=== PATIENT | male | born 1985 | race Caucasian/White ===

== ENCOUNTER 2022-08-18 15:33 | Outpatient (CLI) | payer BC, SELFPAY ==
--- NOTE | ~2022-08-18 | XR_ITS ---
EXAM: XR_CERV2-3V_CR DATE: 08/18/2022 15:51 HISTORY: Left arm numbness . COMPARISON: None available. FINDINGS: Craniocervical association and atlantoaxial joint are aligned. No prevertebral soft tissue swelling. Reversal of the cervical lordosis centered at C5, which can occur with positioning or musc le spasm. Vertebral bodies are aligned. Vertebral body heights are maintained. Mild disc space narrow ing at C4-5. Normal facets and posterior elements. IMPRESSION: No acute fracture or traumatic malalignment in the cervical spine. Mild degenerative disc disease. Reviewed, dictated and finalized at location K. EOPATH
== END 2022-08-18 15:34 ==
PROVIDERS: PCP Family Medicine; Visit Provider Physician Assistant
DX: R20.0 Anesthesia of skin (principal)
CPT/HCPCS: 72040

== ENCOUNTER 2024-11-17 15:53 | Outpatient (CLI) | payer SELFPAY ==
--- NOTE | ~2024-11-17 | XR_ITS ---
EXAM: XR thoracic spine 3V DATE: 11/17/2024 16:20 HISTORY: Upper back pain . COMPARISON: None available. FINDINGS: Vertebral body alignment intact. Vertebral body heights preserved. No disc space narrowing . No traumatic malalignment or fracture. Visualized lung parenchyma is clear. IMPRESSION: Normal thoracic spine radiograph findings. Reviewed, dictated and finalized at location K.
--- NOTE | ~2024-11-17 | XR_ITS ---
EXAM: XR_CERV2-3V_CR DATE: 11/17/2024 16:20 HISTORY: Cervical radiculopathy . COMPARISON: 08/18/2022. FINDINGS: Craniocervical association and atlantoaxial joint are aligned. No prevertebral soft tissue swelling. Reversed lordosis centered at C4-5. Trace, 1 mm anterolisthesis at C4-5. Vertebral body he ights are maintained. Mild disc space narrowing at C4-5. Normal facets and posterior elements. IMPRESSION: Trace grade 1 anterolisthesis at C4-5, with mild degenerative disc disease. Reviewed, dictated and finalized at location K.
== END 2024-11-17 15:54 | disposition home or self-care (01) ==
PROVIDERS: PCP Family Medicine; Visit Provider Family Medicine
DX: M54.12 Radiculopathy, cervical region (principal); M50.30 Other cervical disc degeneration, unspecified cervical region
CPT/HCPCS: 72040; 72072

== ENCOUNTER 2024-11-18 11:48 | Emergency (ER) | payer OTHER, SELFPAY ==
--- NOTE | 2024-11-18 11:50 | ED.GENADULT ---
HPI - General Adult General Chief complaint: Back Pain/Injury Stated complaint: left upper body pain Time Seen by Provider: 11/18/24 11:50 Source: patient Mode of arrival: ambulatory Limitations: no limitations History of Present Illness HPI narrative: 39-year-old male patient presents to the [facility] with complaints left upper neck /back pain. Patient states couple weeks ago he woke up 1 morning and feels like he slept on his back wrong. Patient states he was taking NSAIDs for about a week and states then that the back pain started getting worse. Was seen at an urgent care in [place] was prescribed steroids and muscle relaxers for 10 days. Patient followed up with his primary doctor yesterday had x-rays done which just showed degenerative disc disease and his muscle relaxants read refilled by his doctor. Patient coming in today states still having pain and not getting any relief. Patient states he continues to take NSAIDs with the muscle relaxers but does not feel like the muscle relaxers are helping. Denies numbness and tingling down the lower extremities but states at times he does get some nerve pain to the left arm. Related Data Home Medications ?Medication ?Instructions ?Recorded ?Confirmed ?Last Taken ?Type albuterol sulfate 90 mcg/actuation inhalation 11/18/24 Unknown History aerosol inhaler amoxicillin 875 mg-potassium tablet 11/18/24 Unknown History clavulanate 125 mg tablet budesonide-formoterol HFA 80 inhalation 11/18/24 Unknown History mcg-4.5 mcg/actuation aerosol inhaler (Symbicort) doxycycline hyclate 20 mg tablet mg 11/18/24 Unknown History lisinopril 20 mg tablet mg 11/18/24 Unknown History methocarbamol 500 mg tablet mg 11/18/24 Unknown History montelukast 10 mg tablet mg 11/18/24 Unknown History omeprazole 40 mg capsule,delayed mg 11/18/24 Unknown History release pimecrolimus 1 % topical cream applic topical 11/18/24 Unknown History prednisone 20 mg tablet mg 11/18/24 Unknown History Allergies Allergy/AdvReac Type Severity Reaction Status Date / Time No Known Allergies Allergy Verified 11/18/24 11:59 Review of Systems Review of Systems: CONSTITUTIONAL: Denies fever, chills, or sweats. EYES: Denies visual changes, redness, or discharge. ENT: Denies rhinorrhea, congestion, sore throat, or otalgia. CARDIOVASCULAR: Denies chest pain, palpitations, or edema. RESPIRATORY: Denies cough or dyspnea. GASTROINTESTINAL: Denies abdominal pain, nausea, vomiting, or diarrhea. GENITOURINARY: Denies dysuria or hematuria. SKIN: Denies rash or itching. MUSCULOSKELETAL: Positive left upper back pain, denies joint pain, or myalgia. NEUROLOGIC: Denies headache, numbness, or weakness. PSYCHIATRIC: Denies anxiety or depression. [facility] Past Medical History Medical History (Updated 11/18/24 @ 12:20 by GOYO Esposito) Fracture left and right wrist Asthma Hypothyroidism Comments At the time of my signature I agree with nursing past medical history, surgical, social, and family history. There is no relevant family history pertinent to the presenting complaint. Exam Narrative: GENERAL: Well-appearing, well-nourished, and in no acute distress. HEAD: Normocephalic, atraumatic. EYES: PERRLA and EOMI. ENT: Nares clear, no rhinorrhea or epistaxis. Mucous membranes moist. NECK: Supple. No lymphadenopathy CHEST: Clear to auscultation. No respiratory distress. HEART: Regular rate and rhythm. No murmur heard. Normal peripheral pulses. ABDOMEN: Soft, nontender, nondistended, normal active bowel sounds. EXTREMITIES: Normal range of motion. No edema. BACK: Patient is able to ambulated without assistance. Pt is seated on the stretcher in no obvious distress. No surface trauma noted. muscle tenderness to Palpation at the left side of the T3 area. there is an obvious spasm or mass noted on palpation. No step-offs or deformity noted to the cervical, thoracic or lumbar spine to firm Palpation at the midline. No CVA tenderness to percussion. No saddle anesthesia. ROM: able to stand erect. Normal flexion, extension, Lateral bending and rotation without limitation or complaint of pain. SKIN: Warm, dry, no rash. NEURO: No focal deficits. Alert and oriented x3. Course Course Level of Care: Express Care Visit Vital Signs Vital signs: vital signs reviewed. Medical Decision Making MDM Narrative Medical decision making narrative: discussed with patient that it is highly recommend that he continue to follow-up with his primary doctor and obtain PT. We will go ahead and change of his muscle relaxants to cyclobenzaprine to see if this helps a little bit more encouraged him to continue taking NSAIDs. Discussed with patient that he could also do gentle stretching exercises possibly get a massage to see if they can get the muscle spasm to relax also may want a look in to aged or disabled care worker possibly acupuncture to see if this might help with the muscle spasm. Patient verbalized understanding denies any other questions or concerns at this time. Differential Diagnosis Differential Diagnosis: Differential diagnosis: Acute musculoskeletal injury or exacerbation, neurological emergency, acute coronary syndrome, kidney stones, epidural abscess or hematoma,Cauda Equina Syndrome, herniation. Critical Care Time Critical Care Time Critical Care Time: No Discharge Plan Discharge Clinical Impression: Muscle spasm of back Patient Disposition: Home, Self-Care Condition: Stable Instructions: Antibiotic Form, Muscle Spasm (ED) Additional Instructions: Ice and heat to the area for 20-30 minutes Gentle stretching exercises Gentle massage Caution with lifting, bending, stooping, twisting Avoid pushing, pulling take muscle relaxants as directed--caution drowsiness and no driving or alcohol Anti-inflammatory medicine as directed--take with food He may take the muscle relaxant and anti-inflammatory at the same time Follow-up with your PCP if not improving in 5-7 days Patient Language: Korean Prescriptions: New cyclobenzaprine 10 mg tablet 10 mg PO TID PRN (Reason: muscle spasm) 10 Days Qty: 30 0RF lidocaine [Lidocaine Pain Relief] 4 % adhesive patch,medicated 1 patch topical DAILY PRN (Reason: pain) Qty: 5 0RF No Action methocarbamol 500 mg tablet lisinopril 20 mg tablet prednisone 20 mg tablet pimecrolimus 1 % cream TOPICAL omeprazole 40 mg capsule,delayed release(DR/EC) montelukast 10 mg tablet albuterol sulfate 90 mcg/actuation HFA aerosol inhaler INHALATION doxycycline hyclate 20 mg tablet amoxicillin-pot clavulanate 875-125 mg tablet budesonide-formoterol [Symbicort] 80-4.5 mcg/actuation HFA aerosol inhaler INHALATION Follow-up/Referrals: Adolfo,MD Germaine [Primary Care Provider] - Time of Disposition: 12:22
--- OUTSIDE RECORDS SUMMARY | 2024-11-18 11:51 | XMS_ITS | Encounter Summary ---
Author Organization [facility] Address [address] [place] [address] Care Team Providers Care Layout Artist Name Role Phone Germaine Peña MD Primary Care Provider Reason for Visit * Reason Onset Date Comments Medication 11/17/2024 Encounter Details Date Type Department Care Team (Late st Contact Info) Description 11/17/2024 Telephone [facility] Family & Internal Medicine [facility] [address] [place] [address] [place] [address] [facility]. [address] [place] [address] Medication Social History Tobacco Use Types Packs/Day Years Used Date Smoking Tobacco: Never Passive Smoke Exposure: Never Smokeless Tobacco: Never Alcohol Use Standard Drinks/Week Comments Yes 0 (1 standard drink = 0.6 oz pur e alcohol) Rare, family gatherings PHQ-2 Answer Date Recorded Patient Health Questionnaire-2 Score 0 11/17/2024 Sex and Gender Information Value Date Recorded Sex Assigned at Male 11/17/2024 1:23 PM CDT Legal Sex Male 8:04 PM CDT Gender Identity Not on file Sexual Orientation Not on file documented as of this encounter Progress Notes * Mirna Machado - 11/17/2024 4:28 PM CDT Samantha calling asking if there is anything he can do for his neck pain. States he just got xrays completed. states this is not like him to call off work and complain. Informed her I would send a message to provider, if pain continues to worsen to go to ER. Pharmacy: [facility] # [phone] Samantha documented in this encounter Plan of Treatment Upcoming Encounters Date Type Department Care Team (Late st Contact Info) Description 11/20/2024 7:40 AM CDT Office Visit [facility] Family & Internal Medicine [facility] [address] [place] [phone] [place] [address] [place] [address] 05/25/2025 9:00 AM CDT Office Visit [facility] Family & Internal [facility] [address] [place] [phone] [place] Peña [place] [address] [employer] [place] [address] documented as of this encounter Visit Diagnoses Not on filedocumented in this encounter Additional Health Concerns Assessment Noted Time PHQ-9 Depression Total Score: 0 04/04/20 21 10:06 AM CDT documented as of this encounter Care Teams Layout Artist Relationship Specialty Start Date [place]ña [place] [address] [employer]. [address] [place] [address] PCP - General FAMILY PRACTICE 04/04/21 documented as of this encounter
--- OUTSIDE RECORDS SUMMARY | 2024-11-18 11:51 | XMS_ITS | Encounter Summary ---
Author Organization [facility] Address [address] [place] [address] Care Team Providers Care Horse Rancher Name Role Phone Germaine Peña MD Primary Care Provider [phone] Encounter Details Date Type Department Care Team (Late Contact Info) Description 02/17/2023 MyChart Message Enc [facility] [address] [place], [place] [phone] [place], [facility] Provider Air Quality Message Social History Tobacco Use Types Packs/Day Years Used Date Smoking Tobacco: Never Smokeless Tobacco: Never Alcohol Use Standard Drinks/Week Comments Yes 0 (1 standard drink = 0.6 oz pur e alcohol) Rare, family gatherings PHQ-2 Answer Date Recorded PHQ-2 Score - If the patient scores above 3, please move on to questions 3-9 0 04/04/2021 Sex and Gender Information Value Date Recorded Sex Assigned at Male 11/17/2024 1:23 PM CDT Legal Sex Male 8:04 PM CDT Gender Identity Not on file Sexual Orientation Not on file documented as of this encounter Plan of Treatment Upcoming Encounters Date Type Department Care Team (Late st Contact Info) Description 11/20/2024 7:40 AM CDT Office Visit [facility] Family & Internal Medicine [facility] [address] [place] [address] [place] [address] [place] [address] 05/25/2025 9:00 AM CDT Office Visit [facility] & Internal [facility] [place] [address] [place] [phone] [place]ña [place] [address] [facility] [address] [place] [address] documented as of this encounter Visit Diagnoses Not on filedocumented in this encounter Additional Health Concerns Assessment Noted Time PHQ-9 Depression Total Score: 0 04/04/20 10:06 AM CDT documented as of this encounter Care Teams Horse Rancher Relationship Specialty Start Date [place] Date Germaine Peña [place] [address] [facility] [address]. [address] [place] [address] PCP - General FAMILY PRACTICE 04/04/21 documented as of this encounter
--- OUTSIDE RECORDS SUMMARY | 2024-11-18 11:51 | XMS_ITS | Encounter Summary ---
Author Organization [facility] Address [address] [place] [address] Care Team Providers Care Supervisor Ornamental Ironworking Name Role Phone Germaine Peña MD Primary Care Provider [phone] Encounter Details Date Type Department Care Team (Latest Contact Info) Description 11/17/2024 Travel Social History Tobacco Use Types Packs/Day Years [...] Description 11/20/2024 7:40 AM CDT Office Visit [facility] Family & Internal Medicine [facility] [address] [place] [address] [place] [address] [place], [place] [phone] 05/25/2025 9:00 AM CDT Office Visit [facility] Family & Internal [facility] [address] [place] [address] [place] [address] [facility]. [address] [place] [address] documented as of this encounter Visit Diagnoses Not on filedocumented in this encounter Additional Health Concerns Assessment Noted Time PHQ-9 Depression Total Score: 0 04/04/20 10:06 AM CDT documented as of this encounter Care Teams Supervisor Ornamental Ironworking Relationship Specialty Start [place] Date Germaine Peña [place] [address] [address] [place] [address] PCP - General FAMILY PRACTICE 04/04/21 documented as of this encounter
--- OUTSIDE RECORDS SUMMARY | 2024-11-18 11:51 | XMS_ITS | Encounter Summary ---
Author Organization [facility] Address [address] [place] [address] Care Team Providers Care Assistant Unit Forester Name Role Phone Germaine Peña MD Primary Care Provider [phone] Reason for Referral * Physical Medicine (Routine) - New Request Specialty Diagnoses / Procedures Referred By Rhett ewing Referred To Contact PHYSICAL THERAPY Diagnoses Cervical radiculopathy Strain of left levator scapulae muscle, subsequent encounter Procedures OFFICE/OUTPATIENT NEW LOW MDM 30-44 MINUTES OFFICE/OUTPT VISIT,NEW,LEVL IV OFFICE/OUTPT VISIT,NEW,LEVL V OFFICE/OUTPT VISIT,EST,LEVL III OFFICE/OUTPT VISIT,EST,LEVL IV OFFICE/OUTPT VISIT,EST,LEVL V Germaine Peña MD [address] [place] [address]. [address] [place] [address] Phone: tel: fax: Referral ID Status Reason Start Date Expiration Date Visits Requested Visits Authorized [id number] New Request Physical Therapy 11/17/2024 12/17/2025 1 1 Reason for Visit * Reason Comments Neck And Back Pain Pt c/o neck and back pain x a couple weeks. Pt states his son jumped off the couch on to him. Encounter Details Date Type Department Care Team (Late st Contact Info) Description 11/17/2024 1:20 PM CDT Office Visit [facility] Family & Internal Medicine [address] [phone] [place]ña [place] [address] [facility]. [address] [place] [address] Neck And Back Pain (Pt c/o neck and back pain x a couple weeks. Pt states his son jumped off the couch on to him. ) Social History Tobacco Use Types Packs/Day Years Used Date Smoking Tobacco: Never Passive Smoke Exposure: Never Smokeless Tobacco: Never Tobacco Cessation:Counseling Given: No Alcohol Use Standard Drinks/Week Comments Yes 0 [...] on file documented as of this encounter Last Filed Vital Signs Vital Sign Reading Time Taken Comments Blood Pressure 139/89 11/17/2024 1:22 PM CDT Pulse 93 11/17/2024 1:22 PM CDT Temperature 36.5 C (97.7 F) 11/17/2024 1:22 PM CDT Respiratory Rate 16 11/17/2024 1:22 PM CDT Oxygen Saturation 97% 11/17/2024 1:22 PM CDT Inhaled Oxygen Concentration - - Weight 96.6 kg (213 lb) 11/17/2024 1:22 PM CDT Height 172.7 cm (5' 8 ) 11/17/2024 1:22 PM CDT Body Mass Index 32.39 11/17/2024 1:22 PM CDT documented in this encounter Plan of Treatment Upcoming Encounters Date Type Department Care Team (Late st Contact Info) Description 11/20/2024 7:40 AM CDT Office Visit [facility] Family & Internal Medicine [facility] [address] [place] [address] [place] [address] [place], [place] [phone] 05/25/2025 9:00 AM CDT Office Visit [facility] Family & Internal Medicine [facility] [address] [place] [address] [place]ña [place] [address] [facility]. [address] [place] [address] Scheduled Orders Name Type Priority Associated Diagnoses Orde r Schedule XR CERV SPINE 3V Imaging Routine Cervical radiculopathy Expected: 11/17/2024, Expires: 11/17/2025 CBC W/DIFF AUTOMATED Lab Routine Primary hypertension Expected: 11/17/2024, Expires: 11/17/2025 COMPREHENSIVE METABOLIC PANEL Lab Routine Primary hypertension Expected: 11/17/2024, Expires: 11/17/2025 HEMOGLOBIN, GLYCOSYLATED Lab Routine Prediabetes Expected: 11/17/2024, Expires: 11/17/2025 LIPID PANEL Lab Routine Primary hypertension Expected: 11/17/2024, Expires: 11/17/2025 XR THOR SPINE 3V Imaging Routine Upper back pain Expected: 11/17/2024, Expires: 11/17/2025 Scheduled Referrals Name Type Priority Associated Diagnoses Orde r Schedule Ambulatory referral to Physical Therapy Referral Routine Cervical radiculopathy Strain of left levator scapulae muscle, subsequent encounter Ordered: 11/17/2024 documented as of this encounter Visit Diagnoses Diagnosis Cervical radiculopathy- Primary Brachial neuritis or radiculitis nos Primary hypertension Unspecified essential hypertension Moderate persistent asthma without complication (HHS/HCC) Unspecified asthma Heartburn Prediabetes Other abnormal glucose Strain of left levator scapulae muscle, subsequent encounter Acute non-recurrent maxillary sinusitis Upper back pain documented in this encounter Additional Health Concerns Assessment Noted Time PHQ-9 Depression Total Score: 0 04/04/20 21 10:06 AM CDT documented as of this encounter Care Teams Assistant Unit Forester Relationship Specialty Start Date [place]ña [place] [address] [facility]. [address] [place] [address] PCP - General FAMILY PRACTICE 04/04/21 documented as of this encounter
--- OUTSIDE RECORDS SUMMARY | 2024-11-18 11:51 | XMS_ITS | Encounter Summary ---
Author Organization [facility] Address [address] [place] [address] Care Team Providers Care Data Migration Consultant Name Role Phone Germaine Peña MD Primary Care Provider [phone] Encounter Details Date Type Department Care Team (Late Contact Info) Description 11/18/2022 [employer] Message Enc [facility] [address] [place] [address] [place], [facility] Provider Due for appointment with Dr Peña Social History Tobacco Use Types Packs/Day Years [...] on file Sexual Orientation Not on file COVID-19 Exposure Response Date Recorded In the last 10 days, have yo u been in contact with someone who was confirmed or suspected to have Coronavirus/COVID-19? No / Unsure 10/22/2022 8:32 AM MUFFLER TENDER documented as of this encounter Plan of Treatment Upcoming Encounters Date Type Department Care Team (Late Contact Info) Description 11/20/2024 7:40 AM CDT Office Visit [facility] Family & Internal Medicine [facility] [address] [place] [address] [place] [address] [place] [address] 05/25/2025 9:00 AM CDT Office Visit [facility] Family & Internal Medicine - [place] [address] [place] [phone] Germ[place]ña [place] [address] [facility]. [address] [place] [address] documented as of this encounter Visit Diagnoses Not on filedocumented in this encounter Additional Health Concerns Assessment Noted Time PHQ-9 Depression Total Score: 0 04/04/20 10:06 AM CDT documented as of this encounter Care Teams Data Migration Consultant Relationship Specialty Start [place] Date Germ[place]ña [place] [address] [facility]. [address] [place] [address] PCP - General FAMILY PRACTICE 04/04/21 documented as of this encounter
--- OUTSIDE RECORDS SUMMARY | 2024-11-18 11:51 | XMS_ITS | CONTINUITY OF CARE DOCUMENT ---
Author Name deniz guaman Address Unknown Organization [facility] Address [address] [place] [address] [address] [place] [address] Phone [phone] Care Team Providers Care Electrical Controls Designer Name Role Phone Bhavana BERGER, Andrey Unavailable [phone] DOM BERGER, RUNDA Unavailable DOM BERGER, RUNDA Unavailable [phone] INSURANCE PROVIDERS Payer name Policy type / Coverage type [employer] red republican ID [facility] [id number] 1
--- OUTSIDE RECORDS SUMMARY | 2024-11-18 11:52 | XMS_ITS | Clinical Summary ---
Author Organization [facility] Address [address] [place] [address] Care Team Providers Care Welcome Wagon Host/Hostess Name Role Phone Germaine Peña MD Primary Care Provider [phone] Allergies Active Allergy Reactions Criticality Noted Date Comments Dander Eyes Water & Itch 10/15/2023 cats Dust Mite Extract Shortness of Breath High wheezing Honey Bee Venom Swelling Low 04/04/2021 Happened when he was a kid Medications budesonide-formo terol (SYMBICORT) 80-4.5 MCG/ACT inhalerIndicatio ns:Moderate persistent asthma without complication (HHS/HCC) Inhale 2 puffs into the lungs 2 (two) times daily. 10.2 g 1 10/15/19 24 Active Additional Information Patient not taking.Reported on 11/17/2024 albuterol sulfate HFA 108 (90 Base) MCG/ACT inhalerIndicatio ns:Moderate persistent asthma without complication (HHS/HCC) Inhale 2 puffs into the lungs every 6 (six) hours as needed for Wheezing or Shortness of breath. 18 g 5 10/15/19 24 Active Additional Information Patient not taking.Reported on 11/17/2024 TIRZEPATIDE-WEIG HT MANAGEMENT SC Act renetta Doxycycline Hyclate 20 MG Tab Take 1 tablet by mouth every 12 (twelve) hours. on an empty stomach Active pimecrolimus (ELIDEL) 1 % cream Apply topically 2 (two) times daily. Active lisinopril (PRINIVIL) 20 MG tabletIndication s:Primary hypertension Take 2 tablets (40 mg total) by mouth daily. 180 tablet 1 11/18/19 25 Active montelukast (SINGULAIR) 10 MG tabletIndication s:Moderate persistent asthma without complication (HHS/HCC) Take 1 tablet (10 mg total) by mouth nightly at bedtime. 90 tablet 1 11/18/19 25 Active omeprazole (PRILOSEC) 40 MG capsuleIndicatio ns:Heartburn Take 1 capsule (40 mg total) by mouth daily. 30 capsule 5 11/18/19 25 Active methocarbamol (ROBAXIN) 500 MG tabletIndication s:Cervical radiculopathy,St rain of left levator scapulae muscle, subsequent encounter Take 1 tablet (500 mg total) by mouth 4 (four) times daily as needed. 40 tablet 11/18/19 25 Active amoxicillin-clav ulanate (AUGMENTIN) 875-125 MG tabletIndication s:Acute non-recurrent maxillary sinusitis Take 1 tablet (875 mg total) by mouth 2 (two) times daily for 10 days. 20 tablet 11/18/19 25 025 Active sildenafil (VIAGRA) 50 MG tabletIndication s:Erectile dysfunction, unspecified erectile dysfunction type Take 1 tablet (50 mg) once daily as needed 1 (one) hour prior to intercourse 4 tablet 2 11/18/19 25 Active omeprazole (PRILOSEC) 40 MG capsuleIndicatio ns:Heartburn Take 1 capsule (40 mg total) by mouth daily. 30 capsule 2 10/15/19 24 025 Discontin ued(Reord er) montelukast (SINGULAIR) 10 MG tabletIndication s:Moderate persistent asthma without complication (HHS/HCC) Take 1 tablet (10 mg total) by mouth nightly at bedtime. 90 tablet 1 10/15/19 24 025 Discontin ued(Reord er) lisinopril (PRINIVIL) 20 MG tabletIndication s:Primary hypertension Take 2 tablets (40 mg total) by mouth daily. 180 tablet 1 10/15/19 24 025 Discontin ued(Reord er) tadalafil (CIALIS) 10 MG tabletIndication s:Erectile dysfunction, unspecified erectile dysfunction type take 10 mg as a single dose =30 minutes prior to anticipated sexual activity; do not take more than once daily. 10 tablet 2 10/15/19 24 025 Discontin ued(Insur glynn denial) predniSONE (DELTASONE) 20 MG tabletIndication s:Back strain, initial encounter 2 pills once daily for 5 days then one pill daily for 5 days 30 tablet 11/09/19 25 025 Discontin ued(Thera py completed ) methocarbamol (ROBAXIN) 500 MG tabletIndication s:Back strain, initial encounter Take 1 tablet (500 mg total) by mouth 4 (four) times daily for 10 days. 40 tablet 11/09/19 25 025 Discontin ued(Reord er) sildenafil (VIAGRA) 50 MG tabletIndication s:Erectile dysfunction, unspecified erectile dysfunction type Take 1 tablet (50 mg) once daily as needed 1 (one) hour prior to intercourse 10 tablet 2 11/17/19 25 025 Discontin ued(Reord er) Active Problems Problem Noted Date Diagnosed Date Primary hypertension 05/05/2021 Obesity (BMI 35.0-39.9 without comorbidity) 04/23 Hypertriglyceridemia 05/05/2021 Encounter for in vitro fertilization 01/19/2017 Asthma, mild intermittent (HHS/HCC) 01/19/2017 Encounters Date Type Department Care Team Description 11/17/2024 1:20 PM CDT Office Visit [facility] Medicine [address] [phone] Germaine Peña MD Neck And Back Pain (Pt c/o neck and back pain x a couple weeks. Pt states his son jumped off the couch on to him. ) 11/17/2024 Telephone [facility] [address] [phone] Germaine Peña MD Medication 11/17/2024 Travel 11/16/2024 Orders Only [facility] [address] [phone] Germaine Peña MD 11/08/2024 8:40 AM CDT Office Visit [facility] Internal [address] [address] Nita Elizondo, [place] Back Pain (Feels like a knot under left shoulder blade-sending numbness down [id number]) 11/08/2024 Scan [facility] SRVCS Scanned, [facility] 11/08/2024 Travel from Last 3 Months Immunizations Name Administration Dates Next Due DT (Generic) 04/09/1989, 5,06/20/1984, 984 Hepatitis A (Generic) 09/03/1999 Hepatitis A (Havrix [address]) 09/03/1999 Hepatitis B (Generic: Adult) 01/27/2016,12/19/19 16 Influenza Adult (Generic) 07/03/2022,06/04/2021 MMR 08/01/1991,11/13/1985 MODERNA COVID-19 (12+) MRNA, LNP-S, PF, 100 MCG/ 0.5 ML DOSE 12/31/2020,12/03/2020 Opv 04/09/1989, 5,06/20/1984, 984 Polio Opv (Generic) 04/09/1989, 5,06/20/1984, 984 Td 04/19/1998 Tdap (Generic) 01/06/2016 Family History Medical History Relation Comments Hypertension Brother Hyperlipidemia Father Hypertension Father Heart Attack Maternal Grandfather Stroke Maternal Grandmother Diabetes Mother Hypertension Mother Stroke Mother Diabetes Paternal Grandfather Heart Attack Paternal Grandfather Hypertension Paternal Grandfather Arthritis Paternal Grandmother Lupus Sister Relation Status Comments Brother Father Alive Maternal Grandfather Maternal Grandmother Alive Mother Alive Paternal Grandfather Paternal Grandmother Alive Sister Alive Social History Tobacco Use Types Packs/Day Years [...] on file Sexual Orientation Not on file Last Filed Vital Signs Vital Sign Reading [...] Mass Index 32.39 11/17/2024 1:22 PM CDT Plan of Treatment Upcoming Encounters Date Type Department Care Team (Late st Contact Info) Description 11/20/2024 7:40 AM CDT Office Visit [facility] Medicine [address] [phone] [place] [address] [place], [place] [phone] 05/25/2025 9:00 AM CDT Office Visit [facility] Internal [facility] [address] [place] [phone] [place]ña [place] [address] [facility]. [address] [place] [phone] Health Maintenance Due Date Last Done Comments Pneumococcal Vaccine: Pediatrics (0 to 5 Years) and At-Risk Patients (6 to 64 Years) (1 of 2 - PCV) 1989 Hepatitis B Vaccines (3 of 3 - 19+ 3-dose series) 06/19/2016 01/27/2016, 12/19/2015 COVID-19 Vaccine (3 - Moderna risk series) 01/28/2021 12/31/2020, 12/03/2020 Annual Physical 04/04/2022 04/04/2021 DTaP, Tdap and Td Vaccines (3 - Td or Tdap) 01/05/2026 01/06/2016, 04/19/1998, 04/09/1989, Additional history exists Hepatitis C Completed 01/19/2017 PHQ-2 (Physician [place]) Completed 11/17/2024 HPV Vaccines Aged Out No longer eligi ble based on patient's age to complete this topic Meningococcal B Vaccine Aged Out No l onger eligible based on patient's age to complete this topic Meningococcal Vaccine Aged Out No ada aries eligible based on patient's age to complete this topic RSV Immunizations Under 20 Months Aged Out No longer eligible based on patient's age to complete this topic Procedures Procedure Name Priority Date/Time Associated Diagnosis Comments HEPATITIS C ANTIBODY Routine 01/19/2017 11:15 AM CDT from Last 3 Months or Most Recently Relevant to Health Maintenance Results * HEPATITIS C ANTIBODY (01/19/2017 11:15 AM CDT) HEPATITIS C AB NON-REACTIVE TESTING PERFORMED AT [place] [id number] NR [facility] TO EPIC CONVERSION 01/19/2017 11:1 5 AM CDT 01/19/2017 11:15 AM CDT Narrative [facility] TO EPIC CONVERSION - 01/20/2017 8:31 PM CDT Result Communication: No patient communication needed at this time Don Mascorro MD LABORATORY Final Re sult Performing Organization Address City/State/[facility] Co de Phone Number [facility] TO EPIC CONVERSION from Last 3 Months or Most Recently Relevant to Health Maintenance Insurance [employer] Care Teams Welcome Wagon Host/Hostess Relationship Specialty Start Date [place] Date Germaine Peña [place] [address] [address] [place] [address] PCP - General FAMILY PRACTICE 04/04/21
--- OUTSIDE RECORDS SUMMARY | 2024-11-18 11:52 | XMS_ITS | Clinical Summary ---
Author Organization [facility] [employer] Address [address] [place] [place] [address] Care Team Providers Care Hauling Contractor Name Role Phone Unavailable Primary Care Provider Unavailabl e Source Comments [facility] [employer],non-[facility] Affiliates and Associated Physician Practices is amultiple site organization consisting of ambulatory clinics and hospital sitesin [place], [place], [place] and [place]. This disclosure is being madepursuant to the Care Everywhere program and may not contain all information available regarding this patient. Last updated 18.[facility] [employer] Social History Tobacco Use Types Packs/Day Years Used Date Smoking Tobacco: Never Assessed Sex and Gender Information Value Date Recorded Sex Assigned at Not on file Gender Identity Not on file Sexual Orientation Not on file Plan of Treatment Health Maintenance Due Date Last Done Comments LIPID TESTING 1983 HIV SCREENING 1998 HEPATITIS C SCREENING 08/23/2001 DTAP/TDAP/TD VACCINES (1 - Tdap) 2002 HEPATITIS B VACCINE (1 of 3 - 19+ 3-dose series) 2002 COVID-19 VACCINE ( - 2023-2 5 season) 2024 INFLUENZA VACCINE (#1) 2024 DEPRESSION SCREENING 08/23/2024 ZOSTER VACCINE (1 of 2) 2033 HIB VACCINE Aged Out No longer eligi ble based on patient's age to complete this topic HPV VACCINE Aged Out No longer eligi ble based on patient's age to complete this topic MENINGOCOCCAL (Group B) VACC INE SHARED DECISION-MAKING Aged Out No longer eligibl e based on patient's age to complete this topic MENINGOCOCCAL GROUPS A/C/Y/W VACCINE Aged Out No longer eligible b ased on patient's age to complete this topic PNEUMOCOCCAL VACCINE Aged Out No long er eligible based on patient's age to complete this topic
--- OUTSIDE RECORDS SUMMARY | 2024-11-18 11:52 | XMS_ITS | Encounter Summary ---
Author Organization [facility] Address [address] [place] [address] Care Team Providers Care Roll Cutter Name Role Phone Germaine Peña MD Primary Care Provider [phone] Encounter Details Date Type Department Care Team (Latest Contact Info) Description 11/08/2024 Scan [facility] INFO SRVCS Scanned, [facility] Social History Tobacco Use Types Packs/Day Years Used Date Smoking Tobacco: Never Passive Smoke Exposure: Never Smokeless Tobacco: Never Alcohol Use Standard Drinks/Week Comments Yes 0 (1 standard drink = 0.6 oz pur e alcohol) Rare, family gatherings PHQ-2 Answer Date Recorded Patient Health Questionnaire-2 Score 0 10/15/2023 Sex and Gender Information Value Date Recorded Sex Assigned at Male 11/17/2024 1:23 PM CDT Legal Sex Male 8:04 PM CDT Gender Identity Not on file Sexual Orientation Not on file documented as of this encounter Plan of Treatment Upcoming Encounters Date Type Department Care Team (Late st Contact Info) Description 11/20/2024 7:40 AM CDT Office Visit [facility] Family & Internal Medicine [address] [phone] [place] [address] [place], [place] [phone] 05/25/2025 9:00 AM CDT Office Visit [facility] Family & Internal [address] [phone] [place] [address] [place] [address] documented as of this encounter Visit Diagnoses Not on filedocumented in this encounter Additional Health Concerns Assessment Noted Time PHQ-9 Depression Total Score: 0 04/04/20 10:06 AM CDT documented as of this encounter Care Teams Roll Cutter Relationship Specialty Start Date [place] Date Germaine Peña [place] [address] [place] [address] PCP - General FAMILY PRACTICE 04/04/21 documented as of this encounter
--- OUTSIDE RECORDS SUMMARY | 2024-11-18 11:52 | XMS_ITS | Encounter Summary ---
Author Organization [facility] Address [address] [facility] [place] [address] Care Team Providers Care Probation Officer Name Role Phone Unavailable Primary Care Provider Unavailabl e Encounter Details Date Type Department Care Team (Late st Contact Info) Description 04/22/2023 Lab Requisition [facility] - DermPath Lab [address] [facility] [address] [facility] [place] [phone] Rosalind Gilbert APRN-CNP [facility] DERMATOLOG[facility] [address] [place] [phone] Neoplasm of uncertain behavior of skin Social History Tobacco Use Types Packs/Day Years Used Date Smoking Tobacco: Never Assessed Sex and Gender Information Value Date Recorded Sex Assigned at Not on file Gender Identity Not on file Sexual Orientation Not on file documented as of this encounter Plan of Treatment Not on file documented as of this encounter Procedures Procedure Name Priority Date/Time Associated Diagnosis Comments DERMATOPATHOLOGY Routine 04/22/2023 12:0 0 AM CDT Neoplasm of uncertain behavior of skin documented in this encounter Results * DERMATOPATHOLOGY (04/22/2023 12:00 AM CDT) Case Report Dermatopathology Report Case: [id number] Authorizing Provider: Rosalind Gilbert, Collected: 04/22/2023 12:00 AM MUSEUM EXHIBIT DESIGNER-IRIDOLOGIST Ordering Location: [facility] DermPath Lab Received: 04/23/2023 12:39 PM Pathologist: Abbi Hoskins MD Specimen: Skin, right haines 3:12 PM CDT DERMATOPATHOLOGY LABORATORY Final Diagnosis Specimen A. SKIN, right haines: DERMATOFIBROMA (D23.9) 3:12 PM CDT DERMATOPATHOLOGY LABORATORY Clinical History Squamous Cell Carcinoma 3 3:12 PM CDT DERMATOPATHOLOGY LABORATORY Gross Description Specimen A: Received is one formalin filled container labeled with the patient's name and designated right haines. The specimen consists of a shave biopsy measuring 8x8x2 mm. Jar 0. 3:12 PM CDT DERMATOPATHOLOGY LABORATORY Microscopic Description Specimen A. SKIN, right haines: There is epidermal hyperplasia. Within the dermis, there are fibrohistiocytic cells in haphazard array among coarse collagen bundles. 3 3:12 PM CDT DERMATOPATHOLOGY LABORATORY Disclaimer An external and internal positive and negative controls are appropriate for the histochemical, immunohistochemical and immunofluorescence stain(s) in this case (if any), except where stated explicitly. The performance characteristics of the stain(s) cited in this report were developed and its performance characteristic determined by the Dermatopathology Laboratory at [facility], directed by Dr. Axel Hoskins. These tests need not be, and therefore are not, approved by the [place] Food and Drug Administration. The tests are used for clinical purposes. Billing Codes Specimen Charges Stain Charges 38802 1 3 3:12 PM CDT DERMATOPATHOLOGY LABORATORY Embedded Images 3 3:12 PM CDT DERMATOPATHOLOGY LABORATORY Pathology/Cytolog y TISSUE SPECIMEN FROM SKIN / Unknown 04/22/2023 04/23/2023 12:39 PM CDT Rosalind Gilbert MUSEUM EXHIBIT DESIGNER-IRIDOLOGIST LAB - PATH OLOGY/CYTOLOGY ORDERABLES DERMATOPATHOLOGY LABORATORY [facility] - Department of Dermatology [address], [address] [phone] documented in this encounter Visit Diagnoses Diagnosis Neoplasm of uncertain behavior of skin documented in this encounter
--- OUTSIDE RECORDS SUMMARY | 2024-11-18 11:54 | XMS_ITS | CONTINUITY OF CARE DOCUMENT ---
Author Name deniz guaman Address Unknown Organization [facility] Address [id number] [place] [address] [address] [place] [address] Phone [phone] Care Team Providers Care Boiler Service Technician Name Role Phone Bhavana BERGER, Andrey Unavailable [phone] DOM BERGER, RUNDA Unavailable DOM BERGER, RUNDA Unavailable [phone] INSURANCE PROVIDERS Payer name Policy type / Coverage type [place] red [employer] party ID [facility] [id number]
[2024-11-18 11:58] VITALS: BP 152/93; PULSE 68; RESP 18; TEMP 36.2; O2SAT 97
== END 2024-11-18 12:25 | disposition home or self-care (01) ==
PROVIDERS: Emergency Provider Nurse Practitioner Family; PCP Family Medicine
DX: M62.830 Muscle spasm of back (principal); J45.909 Unspecified asthma, uncomplicated; E03.9 Hypothyroidism, unspecified
CPT/HCPCS: 99213; G0463